=== PATIENT | female | born 1965 | race Caucasian/White ===

== ENCOUNTER 2023-05-28 23:16 | Emergency (ER) | payer OTHER ==
[~2023-05-28] VITALS: Ht 175.3 cm; Wt 80.7 kg
[~2023-05-28 23:16] MED LIST: ALDACTONE25 MG PO; B12 ACTIVE1000 MCG PO; CLOPIDOGREL75 MG PO; ENTRESTO 97 MG1 EACH PO; EZETIMIBE10 MG PO; HYDROXYZINE HCL25 MG PO; INSULIN AS100 UNIT/3 SUB-Q; INSULIN GL100 UNIT/2 SUB-Q; LEVOFLOXACIN500 MG PO; LIPITOR80 MG PO; LOW DOSE ASPIRI81 MG PO; METOPROLOL SUCC25 MG PO; PANTOPRAZOLE SO40 MG PO; TORSEMIDE10 MG PO; VENLAFAXINE H37.5 MG PO; VITAJOY2.5 MG; VITAMIN B-1250 MCG PO; ZINC50 M2 PO
--- OUTSIDE RECORDS SUMMARY | 2023-05-28 23:24 | XMS ---
PreManage Notification: ENRIQUE CHARLES Security Support Services Tech Events No recent Security Events currently on file CRITERIA MET - 6 ED Visits in 6 Months - [facility] - 2 Visits in 30 Days CARE PROVIDERS BRIAN AVILA Community Health Worker 07/15/2022-Current PHONE: [phone] -, Olivia- Dentist: Healthcare Project Manager [facility] PHONE: [phone] Care Guidelines exist for the following facilities: [facility] ( 05/19/2016 ) George VISIT COUNT (12 MO.) [address] [place] [address] SegundoDeven - [place] 2 KAROLINA DuarteDeven TOTAL 17 NOTE: Visits indicate total known visits. ED/UCC VISIT TRACKING (12 MO.) 05/28/2023 23:18 [facility] [place] TYPE: Emergency COMPLAINT: - CHEST PAIN 05/28/2023 22:07 [facility] [place] [facility] [place] TYPE: Emergency COMPLAINT: - Chest Pain DIAGNOSES: - Chest Pain 05/07/2023 14:11 [facility] [place] TYPE: Emergency DIAGNOSES: - Diarrhea, unspecified - Left upper quadrant pain - Nausea with vomiting, unspecified - CHEST PAIN 04/10/2023 18:37 [facility] [place] TYPE: Emergency DIAGNOSES: - Sciatica, left side - Type 2 diabetes mellitus with hyperglycemia - Weakness - Paralysis 03/13/2023 22:29 [facility] [place] TYPE: Emergency DIAGNOSES: - Hyperglycemia, unspecified - Other chest pain - Chest Pain, Dizziness 02/25/2023 12:29 [facility] [place] TYPE: Emergency COMPLAINT: - DIZZY, LIGHT HEADED, ABD PAIN, VOMITING DIAGNOSES: - Acute sinusitis, unspecified - Allergy status to penicillin - Contact with and (suspected) exposure to COVID-19 - Cough, unspecified - Other allergy status, other than to drugs and biological substances - Other specified bacterial agents as the cause of diseases classified elsewhere 02/21/2023 14:35 [facility] [place] TYPE: Emergency DIAGNOSES: - Unspecified sprain of left elbow, initial encounter - fall arm pain 02/15/2023 21:25 [facility] [place] TYPE: Emergency COMPLAINT: - CHEST PAIN DIAGNOSES: - CHEST PAIN 02/06/2023 16:43 [facility] [place] TYPE: Emergency DIAGNOSES: - Migraine, unspecified, not intractable, without status migrainosus - DIZZY HEADACHE L SIDE NUMBNESS 01/04/2023 16:15 [facility] [place] TYPE: Emergency DIAGNOSES: - Pleurodynia - Urinary tract infection, site not specified - R SIDE PAIN 11/11/2022 20:39 [facility] [place] TYPE: Emergency DIAGNOSES: - Other chest pain - chest pain 09/16/2022 12:55 [facility] [place] TYPE: Emergency DIAGNOSES: - Nausea with vomiting, unspecified - Viral infection, unspecified - headaches 07/22/2022 21:49 [facility] [place] TYPE: Emergency COMPLAINT: - Body Aches DIAGNOSES: - Acquired absence of other specified parts of digestive tract - Allergy status to narcotic agent - Allergy status to penicillin - Contact with and (suspected) exposure to COVID-19 - Essential (primary) hypertension - Hyperlipidemia, unspecified - prison (current) use of insulin - Nicotine dependence, cigarettes, uncomplicated - Non-pressure chronic ulcer of other part of right foot with unspecified severity - Old myocardial infarction - Other terminal makeup operator (current) drug therapy - Pneumonia, unspecified organism - Type 2 diabetes mellitus with foot ulcer 07/16/2022 19:22 [facility] [place] TYPE: Emergency COMPLAINT: - Congestion, bilateral ear ache, and cough for three days DIAGNOSES: - Allergy status to narcotic agent - Allergy status to other antibiotic agents - Allergy status to penicillin - Contact with and (suspected) exposure to COVID-19 - Essential (primary) hypertension - Gastro-esophageal reflux disease without esophagitis - Hyperlipidemia, unspecified - prison (current) use of insulin - Nicotine dependence, cigarettes, uncomplicated - Other halfway (current) drug therapy - Other specified respiratory disorders - Type 2 diabetes mellitus without complications 06/30/2022 10:11 [facility] TYPE: Emergency DIAGNOSES: - Heart failure, unspecified - Hypoxemia - Urinary tract infection, site not specified - shortness of breath chest pain 06/27/2022 00:10 [facility] [place] TYPE: Emergency COMPLAINT: - Back pain DIAGNOSES: - Allergy status to narcotic agent - Allergy status to other drugs, medicaments and biological substances - Allergy status to penicillin - Essential (primary) hypertension - Hyperlipidemia, unspecified - intermediate school teacher (current) use of insulin - Other terminal makeup operator (current) drug therapy - Type 2 diabetes mellitus without complications - Unspecified abdominal pain - Urinary tract infection, site not specified 06/21/2022 18:28 [facility] [place] TYPE: Emergency DIAGNOSES: - Chronic obstructive pulmonary disease, unspecified - Hematuria, unspecified - Urinary tract infection, site not specified - lower back pain INPATIENT VISIT TRACKING (12 MO.) No inpatient visits to display in this time frame [email or web address]
[2023-05-28 23:58] LABS: ALBUMIN 3.4 g/dL (3.4-5.0); ALBUMIN/GLOBULIN RATIO 0.87 (1.1-2.4); ANION GAP 8.3 (7-21); BILIRUBIN, TOTAL 0.3 ng/dL (0.2-1.0); BUN/CREATININE RATIO 20.68 (6.0-28.6); CALCIUM 9.8 mg/dL (8.5-10.1); CREATININE, SERUM 0.87 mg/dL (0.55-1.02); MAGNESIUM 2.2 mg/dL (1.8-2.4); POTASSIUM 4.3 mmol/L (3.5-5.1); PROTEIN, TOTAL 7.3 g/dL (6.4-8.2)
[2023-05-29] MEDS ORDERED: VENTOLIN HFA18 GM INH (00:32)
[2023-05-29] MEDS ORDERED: NITROGLYCERIN0.4 MG SL (00:33)
[2023-05-29] MEDS ORDERED: ONDANSETRON ODT8 MG PO (00:33)
[2023-05-29] MEDS ORDERED: TRULICITY3 MG/0.5 M SQ (00:35)
[2023-05-29 00:46] LABS: HEMATOCRIT 38.6 % (35.0-50.0); HEMOGLOBIN 13.4 g/dL (12.0-18.0); MCH 30.8 (27-36); MCHC 34.8 g/dl (30-36); MCV 88.6 fl (81-99); PLATELET COUNT 217 K/uL (140-440); RBC 4.36 M/ul (4.3-5.7); RDW 13.8 (10.5-15.0)
[2023-05-29] MEDS ORDERED: CARAFATE1 GM PO ×2 (01:02→01:41)
[2023-05-29 01:07] LABS: EOSINOPHILS, MANUAL DIFF 1; LYMPHOCYTES, MANUAL DIFF 41; MONOCYTES, MANUAL DIFF 4; NEUTROPHILS, MANUAL DIFF 54
[2023-05-29 01:30] VITALS: BP 110/61
--- NOTE | 2023-05-29 22:34 | EKG ---
[facility] [address] [facility] [place] [address] Signed Normal sinus rhythm Left axis deviation Low voltage QRS Inferior infarct (cited on or before 25-FEB-2023) Abnormal ECG When compared with ECG of 25-FEB-2023 12:42, No significant change was found Confirmed by Maritza Morin MD () on 05/29/2023 10:34:34 PM Electronically Signed By: MARITZA MORIN MD 05/29/23 2234 PATIENT NAME: CHARLESENRIQUE JODI Electrocardiogram DATE OF : 69 PHYSICIAN: MARITZA MORIN MD REPORT #: [id number] REPORT IS CONFIDENTIAL AND NOT TO BE RELEASED WITHOUT AUTHORIZATION
== END 2023-05-29 01:30 | disposition home or self-care (01) ==
LOC: ED 23:16
PROVIDERS: Family Medicine
DX: R07.89 Other chest pain (principal); K21.9 Gastro-esophageal reflux disease without esophagitis; I25.2 Old myocardial infarction; E11.9 Type 2 diabetes mellitus without complications; Z88.0 Allergy status to penicillin; Z91.041 Radiographic dye allergy status; Z79.02 Long term (current) use of antithrombotics/antiplatelets; Z79.82 Long term (current) use of aspirin; Z79.4 Long term (current) use of insulin; Z79.85 Long-term (current) use of injectable non-insulin antidiabetic drugs; Z79.899 Other long term (current) drug therapy; Z79.51 Long term (current) use of inhaled steroids
CPT/HCPCS: 36415; 71045; 80053; 83735; 84484; 85025; 93005; 93010; 96374; 96376; 99285-25; J2270

== ENCOUNTER 2023-10-22 19:50 | Emergency (ER) | payer OTHER ==
[~2023-10-22] VITALS: Ht 175.3 cm; Wt 83.0 kg
[~2023-10-22 19:50] MED LIST changes: +AMITRIPTYLINE H50 MG PO; +CARAFATE1 GM PO; +COZAAR25 MG PO; +DOXYCYCLINE HY100 MG PO; +FAMOTIDINE20 MG PO; +FLONASE ALLERG9.9 ML NAS; +MACROBID 100 M100 MG PO; +NITROGLYCERIN0.4 MG SL; +ONDANSETRON ODT8 MG PO; +TRULICITY3 MG/0.5 M SQ; +VENTOLIN HFA18 GM INH; +VITAMIN B121000 MCG PO; +ZINC50 MG PO
--- OUTSIDE RECORDS SUMMARY | 2023-10-22 19:52 | XMS ---
PreManage Notification: ENRIQUE CHARLES Security Camera Prototyping Engineer Events No recent Security Events currently on file CRITERIA MET - 6 ED Visits in 6 Months - [facility] CARE PROVIDERS BRIAN AVILA Community Health Worker 07/15/2022-Current PHONE: [phone] -, [facility] Dentist: Paradichlorobenzene Tender Current [place] PHONE: [phone] -, [place]- Dentist: Paradichlorobenzene Tender Current [facility] PHONE: [phone] [facility] Current \F\ [facility] PHONE: [phone] Care Guidelines exist for the following facilities: [facility] ( 05/19/2016 ) George VISIT COUNT (12 MO.) [address] [place] [address] [facility] TOTAL 15 NOTE: Visits indicate total known visits. ED/UCC VISIT TRACKING (12 MO.) 10/22/2023 19:51 [facility] [place] TYPE: Emergency COMPLAINT: - RIGHT SIDE/FLANK PAIN 09/06/2023 12:41 [facility] [place] TYPE: Emergency DIAGNOSES: - Hyperglycemia, unspecified - DIABETIC PROBLEM 09/05/2023 18:[address] [facility] [place] TYPE: Emergency COMPLAINT: - HEAD INJURY DIAGNOSES: - Allergy status to penicillin - Contusion of scalp, initial encounter - Dyspnea, unspecified - Fall on same level from slipping, tripping and stumbling without subsequent striking against object, initial encounter - Headache, unspecified - FDC (current) use of aspirin - remote computer terminal operator (current) use of insulin - Old myocardial infarction - Other exterminator helper termite (current) drug therapy - Radiographic dye allergy status - Type 2 diabetes mellitus without complications - Urinary tract infection, site not specified 08/26/2023 23:08 [facility] [place] TYPE: Emergency DIAGNOSES: - Other chest pain - Chest Pain 05/28/2023 23:[address] [facility] [place] TYPE: Emergency COMPLAINT: - CHEST PAIN DIAGNOSES: - Allergy status to penicillin - Chest pain, unspecified - Gastro-esophageal reflux disease without esophagitis - FDC (current) use of antithrombotics/antiplatelets - remote computer terminal operator (current) use of aspirin - remote computer terminal operator (current) use of inhaled steroids - remote computer terminal operator (current) use of insulin - Long-term (current) use of injectable non-insulin antidiabetic drugs - Old myocardial infarction - Other chest pain - Other fdc (current) drug therapy - Radiographic dye allergy status - Type 2 diabetes mellitus without complications 05/28/2023 22:07 [facility] [place] TYPE: Emergency COMPLAINT: - Chest Pain DIAGNOSES: - Chest Pain 05/07/2023 14:11 [facility] [place] TYPE: Emergency DIAGNOSES: - Diarrhea, unspecified - Left upper quadrant pain - Nausea with vomiting, unspecified - CHEST PAIN 04/10/2023 18:37 [facility] [place] TYPE: Emergency DIAGNOSES: - Sciatica, left side - Type 2 diabetes mellitus with hyperglycemia - Weakness - Paralysis 03/13/2023 22:29 [employer] [facility] [place] TYPE: Emergency DIAGNOSES: - Hyperglycemia, unspecified - Other chest pain - Chest Pain, Dizziness 02/25/2023 12:[address] [facility] [place] TYPE: Emergency COMPLAINT: - DIZZY, LIGHT HEADED, ABD PAIN, VOMITING DIAGNOSES: - Acute sinusitis, unspecified - Allergy status to penicillin - Contact with and (suspected) exposure to COVID-19 - Cough, unspecified - Other allergy status, other than to drugs and biological substances - Other specified bacterial agents as the cause of diseases classified elsewhere 02/21/2023 14:35 [employer] [facility] [place] TYPE: Emergency DIAGNOSES: - Unspecified sprain of left elbow, initial encounter - fall arm pain 02/15/2023 21:25 [employer] [facility] [place] TYPE: Emergency COMPLAINT: - CHEST PAIN DIAGNOSES: - CHEST PAIN 02/06/2023 16:43 [employer] [facility] [place] TYPE: Emergency DIAGNOSES: - Migraine, unspecified, not intractable, without status migrainosus - DIZZY HEADACHE L SIDE NUMBNESS 01/04/2023 16:15 [facility] [employer] [place] TYPE: Emergency DIAGNOSES: - Pleurodynia - Urinary tract infection, site not specified - R SIDE PAIN 11/11/2022 20:39 [facility] [place] TYPE: Emergency DIAGNOSES: - Other chest pain - chest pain INPATIENT VISIT TRACKING (12 MO.) No inpatient visits to display in this time frame [email or web address]
[2023-10-22] MEDS ORDERED: SODIUM CHLORIDE 0.9% 1,000 ML IV ONE (21:30)
[2023-10-22] MEDS ORDERED: MORPHINE SULFATE 4 MG/ML VIAL IV ONE (21:30)
[2023-10-22] MEDS ORDERED: ondansetron HCL 4 MG/2 ML VIAL IV ONE (21:30)
[2023-10-22 22:00] LABS: BASOPHILS 0.9 % (0-2); EOSINOPHILS 1.1 % (0-6); HEMATOCRIT 36.4 % (35.0-50.0); HEMOGLOBIN 12.8 g/dL (12.0-18.0); LYMPHOCYTES 40.5 % (24-44); MCH 31.2 (27-36); MCHC 35.2 g/dl (30-36); MCV 88.7 fl (81-99); MONOCYTES 8.7 % (0-12); NEUTROPHILS 48.8 % (39-80); PLATELET COUNT 178 K/uL (140-440); RDW 13.9 (10.5-15.0)
[2023-10-22 22:18] LABS: ALBUMIN 3.1 g/dL (3.4-5.0); ALBUMIN/GLOBULIN RATIO 0.86 (1.1-2.4); ANION GAP 10.1 (7-21); BILIRUBIN, TOTAL 0.3 ng/dL (0.2-1.0); BUN/CREATININE RATIO 18.27 (6.0-28.6); CALCIUM 8.9 mg/dL (8.5-10.1); CREATININE, SERUM 0.93 mg/dL (0.55-1.02); POTASSIUM 4.1 mmol/L (3.5-5.1); PROTEIN, TOTAL 6.7 g/dL (6.4-8.2)
[2023-10-22 22:28] LABS: BILIRUBIN, URINE NEGATIVE (negative); BLOOD/HGB, URINE NEGATIVE (Negative); KETONE, URINE NEGATIVE (Negative); LEUK ESTERASE, URINE TRACE (negative); NITRITE, URINE NEGATIVE (negative); PH, URINE 5.5 (5-7)
[2023-10-22 22:35] LABS: BACTERIA, URINE 2+ /hpf (negative); CASTS, URINE HYALINE 2+ \\lpf; COLLECTION TYPE, URINE CLEAN CATCH; CRYSTALS, URINE NONE SEEN (0-1+); EPITHELIAL CELLS, URINE SQUAMOUS 1+ /lpf (0-1+); REFLEX CULTURE, URINE Yes (No); WHITE BLOOD CELLS, URINE 41-50 /HPF (0-5)
[2023-10-22] MEDS ORDERED: MACROBID 100 M100 MG PO ×2 (22:39→23:39)
[2023-10-22] MEDS ORDERED: TRAMADOL HCL50 MG PO (22:39)
[2023-10-22] MEDS ORDERED: TRAMADOL HCL 50 MG HOME.PACK PO ONE (23:15)
[2023-10-22] MEDS ORDERED: NITROFURANTOIN MONOHYD MACROCR 100 MG HOME.PACK PO ONE (23:15)
[2023-10-22 23:41] VITALS: BP 103/48
== END 2023-10-22 23:44 | disposition home or self-care (01) ==
LOC: ED 19:50
PROVIDERS: Family Medicine
DX: N39.0 Urinary tract infection, site not specified (principal); E11.9 Type 2 diabetes mellitus without complications; I25.2 Old myocardial infarction; Z88.0 Allergy status to penicillin; Z88.8 Allergy status to other drugs, medicaments and biological substances; Z91.041 Radiographic dye allergy status; Z79.4 Long term (current) use of insulin; Z79.899 Other long term (current) drug therapy
CPT/HCPCS: 36415; 74176; 80053; 81001; 85025; 87088; 96374; 96375; 99284-25; A9270; J2270; J2405; J7030

== ENCOUNTER 2023-11-08 09:40 | Day surgery (SDC) | payer OTHER ==
[2023-11-02 13:47] VITALS: BP 102/62
[~2023-11-08] VITALS: Ht 175.3 cm; Wt 84.5 kg
[~2023-11-08 09:40] MED LIST changes: +CEFAZOLIN SODIUM 2 GM/20 ML SYR IV SCH; +IBLOOD GLUCOSE TEST STRIP 1 EA TEST VI PRN; +LACTATED RINGER'S 1,000 ML IV SCH; +LIDOCAINE HCL 1% 5 ML SDV INJ ONE; +TRAMADOL HCL50 MG PO
[2023-11-08 10:50] VITALS: BP 126/44
[2023-11-08] MEDS ORDERED: fentaNYL citrate 100 MCG/2 ML VIAL ONE (12:16)
[2023-11-08] MEDS ORDERED: ondansetron HCL 4 MG/2 ML VIAL ONE (12:17)
[2023-11-08] MEDS ORDERED: LIDOCAINE HCL 2% 5 ML SDV ONE (12:17)
[2023-11-08] MEDS ORDERED: propofoL 200 MG/20 ML VIAL ONE (12:17)
[2023-11-08] MEDS ORDERED: ACETAMINOPHEN 1,000 MG/100 ML VIAL ONE (12:51)
[2023-11-08] MEDS ORDERED: KETOROLAC TROMETHAMINE 30 MG/ML VIAL ONE (12:51)
[2023-11-08] MEDS ORDERED: estradioL 0.01% 42.5 GM TUBE ONE (12:51)
[2023-11-08] MEDS ORDERED: NALOXONE HCL 0.4 MG SYR IV PRN (13:00)
[2023-11-08] MEDS ORDERED: ondansetron HCL 4 MG/2 ML VIAL IV PRN ×2 (13:00→13:15)
[2023-11-08] MEDS ORDERED: IBLOOD GLUCOSE TEST STRIP 1 EA TEST VI PRN (13:00)
[2023-11-08] MEDS ORDERED: droPERidol 5 MG/2 ML VIAL IV PRN (13:00)
[2023-11-08] MEDS ORDERED: fentaNYL citrate 50 MCG/ML SDV IV PRN (13:00)
[2023-11-08] MEDS ORDERED: OXYCODONE/APAP 5/325 TAB PO PRN (13:15)
[2023-11-08] MEDS ORDERED: HYDROmorphone HCL 1 MG/ML SYR IV PRN (13:15)
[2023-11-08] MEDS ORDERED: ePHEDrine sulfate 50 MG/ML AMP ONE (13:25)
[2023-11-08] MEDS ORDERED: LABETALOL HCL 20 MG/4 ML VIAL ONE (13:30)
[2023-11-08] MEDS ORDERED: ESMOLOL HCL 100 MG/10 ML VIAL IV ONE (13:30)
[2023-11-08] MEDS ORDERED: PHENYLEPHRINE HCL 10 MG/ML VIAL ONE (13:46)
--- NOTE | 2023-11-08 15:11 | NUR ---
11/08/23 1511 Jenna Long 1435 PT ARRIVED IN PACU SLEEPY WITH NO C/O'S. VAG PACKING IN PLACE AND VERBAL ORDER GIVEN TO REMOVE AT 1500. 1445 BLOOD SUGAR 177. 1500 VAG PACKING REMOVED, WITH 19 INCHES PRESENT. PT TOLERATED WELL WITH NO C/O'S. 1510 TO DS. REPORT GIVEN TO ANY.
[2023-11-08 15:33] VITALS: BP 99/43
--- NOTE | 2023-11-08 15:58 | NUR ---
1525-PT UP TO BEDSIDE. DENIES DIZZINESS. PT STANDS UP AND MOVES TO BEDSIDE COMMODE WITH 1 RN ASSIST. PT TOLERATED WELL. 1530-PT VOIDED 25ML OF YELLOW URINE. 1533-PT BACK TO BED. RESP EVEN AND UNLABORED. DENIES PAIN AND NAUSEA. PT HAD 3 LOW BP. 80'S/40'S. PT DENIES BEING LIGHTHEADED OR DIZZY. LAST BP HAD INCREASED. IV FLUIDS INFUSING. PROVIDED PT WITH PUDDING AND WATER. NO OTHER NEEDS AT THIS TIME. AT BEDSIDE. CALL LIGHT WITHIN REACH.
--- NOTE | 2023-11-08 16:27 | NUR ---
1610-BP 105/43 (59) P-75. PT STATES FEELING GOOD. DENIES PAIN AND NAUSEA. BAIT HUGGER TURNED ON. NO OTHER NEEDS AT THIS TIME. CALL LIGHT WITHIN REACH.
[2023-11-08 16:32] VITALS: BP 127/51
--- NOTE | 2023-11-08 16:36 | NUR ---
PT LAYING IN BED AWAKE. RESP EVEN AND UNLABORED. VSS. RATES PAIN 4/10. DENIES NAUSEA. PT DRINKING WATER. NO OTHER NEEDS AT THIS TIME. AT BEDSIDE. CALL LIGHT WITHIN REACH.
--- NOTE | 2023-11-08 17:35 | NUR ---
LE 1645-PT UP TO BEDSIDE COMMODE. LE 1655-PT VOIDS 150ML URINE. PT WOULD LIKE TO GET DRESSED. IN ROOM TO HELP PT.
--- NOTE | 2023-11-08 17:39 | NUR ---
SANDY 5290-WENT OVER DISCHARGE INSTRUCTIONS WITH PT AND . ALL QUESTIONS ANSWERED. WENT OVER DISCHARGE MEDICATIONS. HAS RX. PT AMBULATES TO SCOOTER AND RIDES OUT OF DAY SURGERY. THIS RN WALKED WITH PT TO FRONT OF HOSPITAL.
== END 2023-11-08 17:20 | disposition home or self-care (01) ==
LOC: DS 09:40 → EDSTATUS 12:30 → DS 13:10
PROVIDERS: ATTEND Urology
PROC: 0TSC0ZZ Reposition Bladder Neck, Open Approach (ICD-10-PCS; principal; 2023-11-08 13:10)
DX: N32.0 Bladder-neck obstruction (principal); R33.9 Retention of urine, unspecified; N39.0 Urinary tract infection, site not specified; I25.10 Atherosclerotic heart disease of native coronary artery without angina pectoris; E11.9 Type 2 diabetes mellitus without complications; I10 Essential (primary) hypertension; E78.00 Pure hypercholesterolemia, unspecified; F17.210 Nicotine dependence, cigarettes, uncomplicated; Z79.899 Other long term (current) drug therapy; Z88.0 Allergy status to penicillin; Z88.8 Allergy status to other drugs, medicaments and biological substances
CPT/HCPCS: J0131; J0690; J1885; J2001; J2371; J2405; J2704; J3010; J3490; J7121

== ENCOUNTER 2023-12-01 05:30 | Day surgery (SDC) | payer OTHER ==
[~2023-12-01] VITALS: Ht 175.3 cm; Wt 84.0 kg
--- NOTE | ~2023-12-01 | OR ---
[facility] [address], [place] [address] Draft DATE OF OPERATION: 12/01/2023 SURGEON: Yonas Rodríguez DPM PREOPERATIVE DIAGNOSIS: Diabetic ulcer, right foot. POSTOPERATIVE DIAGNOSIS: Diabetic ulcer, right foot. PROCEDURE: Bone debridement right 2nd metatarsal. ANESTHESIA: MAC with local block, right foot. CLINICAL OPERATIONS SPECIALIST: Dylan Carolina. SPECIMEN TO PATHOLOGY: Bone of right 2nd metatarsal head debridement. PROCEDURE IN DETAIL: The patient was brought to the operating room and placed on the table in the supine position. Anesthesia department administered IV sedation after which a local block was given to the right foot using a total of 11 mL 1:1 mixture, 2% lidocaine plain and 0.5% ropivacaine plain. The right leg and foot was then prepped and draped in the usual sterile manner and an Esmarch was used for hemostasis. Attention was initially directed to the distal aspect right 2nd metatarsal, the patient has had a previous 2nd digit amputation and the incision was made across the distal aspect of the 2nd metatarsal transversely just above weightbearing plane. The incision was full thickness and extended deep to bone using careful dissection and cautery as necessary for hemostasis. Soft tissues were reflected dorsal and plantar to expose the 2nd metatarsal head. Power instrumentation then used to resect a small amount of bone, about 3 mm off the plantar aspect of the 2nd metatarsal head. The bone was removed and sent for pathology. The surgical site inspected. No remaining bone or necrotic tissue is noted. The tissue is healthy with good color and apparent bleeding. The surgical site then irrigated with copious amounts of normal saline, then closed PATIENT NAME: ENRIQUE CHARLES OPERATIVE REPORT DATE OF : 69 REPORT #: [id number] PHYSICIAN: YONAS RODRÍGUEZ DPM PCP: VALERI GARRETT PA-C REPORT IS CONFIDENTIAL AND NOT TO BE RELEASED WITHOUT AUTHORIZATION [facility] [address], [place] [address] Draft using 3-0 nylon monofilament suture. The surgical site then dressed with Adaptic, gauze 4x4s, Flexicon, and Coban for mild compression. The patient tolerated the procedure and the anesthesia well and left the operating room with vital signs stable and vascular status intact to the right foot as evidenced by hyperemia with removal of the Esmarch. INTRAOPERATIVE COMPLICATIONS: None Yonas Rodríguez DPM DFB/MODL /[id number] Copies: ~ PATIENT NAME: ENRIQUE CHARLES OPERATIVE REPORT DATE OF : 69 REPORT #: [id number] PHYSICIAN: YONAS RODRÍGUEZ DPM PCP: VALERI GARRETT PA-C REPORT IS CONFIDENTIAL AND NOT TO BE RELEASED WITHOUT AUTHORIZATION
[~2023-12-01 05:30] MED LIST changes: -CEFAZOLIN SODIUM 2 GM/20 ML SYR IV SCH; +HYDROXYZINE HCL50 MG PO; -IBLOOD GLUCOSE TEST STRIP 1 EA TEST VI PRN; +JARDIANCE10 MG PO; -LIDOCAINE HCL 1% 5 ML SDV INJ ONE
[2023-12-01 05:58] VITALS: BP 100/45
[2023-12-01] MEDS ORDERED: OZEMPIC2 MG/0.75 SUB-Q (06:05)
[2023-12-01] MEDS ORDERED: DEXAMETHASONE SOD PHOS 4 MG/ML VIAL ONE (06:15)
[2023-12-01] MEDS ORDERED: VANCOMYCIN HCL 500 MG VIAL ONE (06:15)
[2023-12-01] MEDS ORDERED: LIDOCAINE HCL 2% 20 ML MDV ONE (06:16)
[2023-12-01] MEDS ORDERED: Ropivacaine HCl 0.5% 30 ML VIAL ONE (06:16)
[2023-12-01] MEDS ORDERED: ondansetron HCL 4 MG/2 ML VIAL ONE (06:59)
[2023-12-01] MEDS ORDERED: METOCLOPRAMIDE HCL 10 MG/2 ML SDV ONE (06:59)
[2023-12-01] MEDS ORDERED: MIDAZOLAM HCL 2 MG/2 ML VIAL ONE (06:59)
[2023-12-01] MEDS ORDERED: propofoL 200 MG/20 ML VIAL ONE (06:59)
[2023-12-01] MEDS ORDERED: LIDOCAINE HCL 1% 5 ML SDV INJ ONE (07:00)
[2023-12-01] MEDS ORDERED: IBLOOD GLUCOSE TEST STRIP 1 EA TEST VI PRN (07:00)
[2023-12-01] MEDS ORDERED: CLINDAMYCIN PHOSPHATE/D5W 600 MG/50 ML BAG IV SCH (07:00)
--- NOTE | 2023-12-01 07:14 | NUR ---
ATTEMPTED TO VISIT DURING SPIRITUAL CARE ROUNDS. PT GONE FOR PROCEDURE. PROVIDED PRAYER.
--- NOTE | 2023-12-01 08:00 | NUR ---
12/01/23 0800 Gissel Staples 0753-PATIENT ARRIVED TO PACU ON RA RR EVEN. HOB ELEVATED. PATIENT REACTIVE TO VERBAL STIMULI VERY DROWSY OPENS EYES AND DOZES BACK TO SLEEP. RIGHT FOOT ELEVATED ON PILLOW. TOES ARE COOL UNABLE TO PALPATE PEDAL PULSE. SHOE AT BEDSIDE. SR. IVF INFUSING. 0757-GLUCOSE CHECKED 250
[2023-12-01 08:43] VITALS: BP 135/60
--- NOTE | 2023-12-01 08:45 | NUR ---
SANDY 0840: PT IS BACK TO DS FROM PACU. SHE IS EASILY AROUSABLE. SHE HAS NO COMPLAINTS OF PAIN. SHE IS TOLERATING SIPS OF WATER. SHE STATES THAT SHE WOULD LIKE TO GET UP TO USE THE BATHROOM. CALL LIGHT WITHIN REACH.
[2023-12-01 10:00] VITALS: BP 114/51
--- NOTE | 2023-12-01 10:40 | NUR ---
LE 0940: PT'S HUBAND HAS RETURNED. SHE HAS TOLERATED WATER, PUDDING, AND JELLO. SHE IS INDICATES THAT SHE WOULD LIKE TO GO HOME. SHE IS EDUCATED ON HOW TO BEST DRESS HERSELF AND TO OPEN HER CURTAIN WHEN SHE IS READY. LE 0950: PT OPENS HER CURTAIN AND GETS HERSELF TO THE BATHROOM WITH HER MOTORIZED SCOOTER. LE 1000: PT AND AND GIVEN VERBAL AND WRITTEN DC INSTRUCTIONS. THEY BOTH VERBALIZE UNDERSTANDING. NO QUESTIONS AT THIS TIME. SHE LEAVES VIA HER MOTORIZED SCOOTER TO PERSONAL VEHICLE.
--- NOTE | 2023-12-09 14:30 | PATH ---
[facility] [address] [place], [place] [address] Signed SPECIMEN(S): A RIGHT 2ND METATARSAL BONE DEBRIDEMENT SPECIMEN SOURCE: A. RIGHT 2ND METATARSAL BONE DEBRIDEMENT CLINICAL HISTORY: Recurrent ulcer right 2nd metatarsal head FINAL PATHOLOGIC DIAGNOSIS: Second metatarsal bone, right, debridement: - Cartilage and bone with extravasation of red blood cells in the surrounding fibroadipose tissue. - There is no evidence of osteomyelitis present in these sections. K MICROSCOPIC EXAMINATION: Histologic sections of all submitted blocks are examined by light microscopy. These findings, together with the gross examination, support the pathologic diagnosis. GROSS DESCRIPTION: The specimen, labeled and designated "Charles, " and designated on the requisition "right 2nd metatarsal bone debridement," is received in formalin and consists of two fragments of fernandez-pink to brown-fernandez bone (0.8 and 1.4 cm in greatest dimension). The specimen is submitted entirely in cassette A1 following decalcification in DECAL STAT. AC (under the direct supervision of a pathologist) The Gross Description was prepared using a voice recognition system. The report was reviewed for accuracy; however, sound-alike word errors, addition and/or deletions may occur. If there is any question about this report, please contact Client Services. ADDITIONAL NOTES: Immunohistochemical and/or in situ hybridization studies if performed in this case included appropriate positive controls that reacted as expected. This test was developed and its performance characteristics determined by [employer]. It has not been cleared or approved by the U.S. Food and Drug Administration. The FDA has determined that such clearance or approval is not necessary. This test is used for clinical purposes. It should not be regarded as investigational or for research. [employer] is certified under the PATIENT NAME: ENRIQUE CHARLES PATHOLOGY DATE OF : 69 REPORT #: [id number] PHYSICIAN: WES CLAUDIO PCP: VALERI GARRETT PA-C REPORT IS CONFIDENTIAL AND NOT TO BE RELEASED WITHOUT AUTHORIZATION [facility] [address] [place] [id number] Signed Clinical Laboratory Improvement Amendments of 1988 (CLIA) as qualified to perform high complexity clinical laboratory testing. PERFORMING LABORATORY: Technical component was performed by [employer], [address] [place] [address] (CLIA# [id number]). Professional interpretation was performed by [facility], [address] [place] [address] (CLIA#: [id number]). Diagnostician: Azar Eid MD Pathologist Electronically Signed 12/09/2023 Copies: ~ PATIENT NAME: ENRIQUE CHARLES PATHOLOGY DATE OF : 69 REPORT #: [id number] PHYSICIAN: WES CLAUDIO PCP: VALERI GARRETT PA-C REPORT IS CONFIDENTIAL AND NOT TO BE RELEASED WITHOUT AUTHORIZATION
== END 2023-12-01 10:05 | disposition home or self-care (01) ==
LOC: DS 05:30
PROVIDERS: ATTEND Podiatrist Foot Surgery
DX: E11.621 Type 2 diabetes mellitus with foot ulcer (principal); L97.416 Non-pressure chronic ulcer of right heel and midfoot with bone involvement without evidence of necrosis; E11.42 Type 2 diabetes mellitus with diabetic polyneuropathy; L84 Corns and callosities; Z79.82 Long term (current) use of aspirin; Z79.4 Long term (current) use of insulin; Z79.899 Other long term (current) drug therapy
CPT/HCPCS: 01480; 73630; 88307; 88311; J1100; J2250; J2405; J2704; J2765; J2795; J3370; J7121